=== PATIENT | male | born 1975 | race Caucasian/White ===

== ENCOUNTER 2024-09-05 13:02 | Emergency (ER) | payer SELFPAY ==
[2024-09-05 13:11] VITALS: BP 152/72
--- NOTE | 2024-09-05 13:39 | ED.GENMED ---
History of Present Illness
General
Chief Complaint: Suicidal Ideation
Source: patient
Exam Limitations: none
Time Seen by Provider: 09/05/24 13:37
Nursing documentation reviewed up to this point in time: agreed with
History of Present Illness
History of Present Illness:
Note:
CHIEF COMPLAINT(S)
Suicidal thoughts
HISTORY OF PRESENT ILLNESS
The patient is a 48-year-old male presenting with acute suicidal ideation, stating today as being worse than his usual baseline. He reported, 'Today seemed worse,' and admitted to having pills ready to ingest but did not take any. He described
feeling suicidal 'basically forever' and noted a history of bipolar disorder with psychosis, diagnosed during a psychiatric admission in 2005. He reports being depressed, despite not feeling it at the moment, saying, 'Right now, I dont feel it, but
yes, Im absolutely.' The patient is currently not taking any medications and does not have a relationship with a psychiatrist. He expressed a lack of safety in his own home despite having lived with his mother, stating, 'I dont feel safe for myself.'
SOCIAL DETERMINANTS AFFECTING HEALTH
The patient is currently unemployed with no source of income, stating, 'Do you have any income at all?' to which he responded negatively. He mentioned receiving some aid from his bapt[employer]. He indicated that he no longer feels safe in his living
situation.
SOCIAL HISTORY
The patient smokes cigarettes and marijuana; the product used is marijuana in the form of THC inhalers, referred to as 'those little inhalers,' likened to vaping. He does not consume alcohol.
REVIEW OF SYSTEMS
- Psychiatric: Suicidal ideation, history of bipolar disorder with psychosis, depression.
- Neurological: No acute change noted.
- Respiratory: No acute difficulty or concern raised.
PROBLEM LIST
- Acute: Suicidal ideation
- Chronic: Bipolar disorder with psychosis
PLAN
The patient will need immediate psychiatric evaluation, and a review of blood sample results is pending. A safety assessment and potential admission to a psychiatric facility are indicated due to the suicidal ideation.
DIFFERENTIAL DIAGNOSIS
The Differential Diagnosis includes, in no particular order and is not limited to:
1. Bipolar disorder with psychosis
2. Major depressive disorder
3. Schizoaffective disorder
4. Panic disorder
5. Substance-induced mood disorder
6. Post-traumatic stress disorder
7. Personality disorder
8. Adjustment disorder
9. Generalized anxiety disorder
10. Delusional disorder
CARE-UPDATE
09/05/24 - 14:57
The patient is to be admitted to a crisis facility for inpatient psychiatric treatment. Awaiting a crisis evaluation for final disposition. No evidence of acute medical illness currently observed.
Disposition:
DIAGNOSIS
- Suicidal ideation (ICD-10: R45.851)
- Bipolar disorder with psychosis (ICD-10: F31.2)
SUMMARY OF ENCOUNTER
The patient, a 48-year-old male, presented to the emergency department with acute suicidal ideation, reporting that the day was markedly worse compared to his usual baseline. He admitted having intentions to ingest pills but had not done so at the
time of the encounter. The patient has a longstanding history of suicidal thoughts, exacerbated by his diagnosis of bipolar disorder with psychosis since 2005. He expressed feeling unsafe at his current residence despite living with his mother. The
encounter included a safety assessment and plans for an imminent psychiatric evaluation to address the acute mental health crisis. The patient is currently off medications and lacks psychiatric follow-up.
DISPOSITION
psych facility
CONSIDERATION FOR ADMISSION
The patient was considered for admission to a crisis facility for inpatient psychiatric treatment due to acute suicidal ideation and perceived lack of safety at home.
ASSESSMENT
The patient exhibits acute suicidal ideation in the context of a chronic mental health disorder, specifically bipolar disorder with psychosis.
PLAN
The management plan includes an immediate psychiatric evaluation with potential admission to a psychiatric facility. The patients safety needs to be assessed, and appropriate interventions initiated to ensure his safety and stabilization.
SMOKING CESSATION COUNSELING
The patient smokes cannabis; I counseled him on cessation and informed him of the significant health risks associated with smoking, including potential for worsening mental health outcomes. Encouragement was given to consider discontinuation with
strategies such as setting a quit date.
MEDICAL DECISION MAKING
Number and Complexity of Problems Addressed:
The encounter involved management of acute suicidal ideation and ongoing symptoms of bipolar disorder with psychosis, reflecting a complex and potentially life-threatening scenario.
Risk:
High risk necessitated potential admission due to acute mental health crisis and lack of safe living environment. Social determinants, such as unemployment and absence of psychiatric care, further complicated this case, demanding consideration for
inpatient psychiatric intervention.
To the best of my knowledge and according to current medical standards, the patient was provided with care that meets or exceeds the standard of care for their condition.
Phy Exam
Physical Exam
Physical Exam:
Physical Exam
General: no apparent distress, not acutely ill
Neck: supple. no meningeal signs. normal posterior pharynx
Heart: s1/s2 regular rate and rhythm, no murmur. equal radial
pulses.
HEENT: Pupils equal round reactive to light, EOMI
Lungs: no acute respiratory distress. clear bilaterally
Abdomen: normal bowel sounds. not tender. no CVAT
Neuro: alert and oriented. no focal neurological deficits cranial nerves II through XII intact
Skin: no rash
Psychiatric: well kept. interactive and cooperative
Extremities: no edema. no calf tenderness. negative homans. good distal pulses
Course
Orders/Labs/Results
Orders:
Orders
09/05/24 13:30
1:1 Observation - Suicide/ Violent Behavior As Directed
Crisis Consult Urgent
Reason for Consult: Suicidal ideation. visual hallucinations
09/05/24 14:34
Acetaminophen Urgent
Alcohol Urgent
Complete Blood Count/With Diff Urgent
Comprehensive Metabolic Panel Urgent
Salicylate Urgent
Urine Drug Abuse Screen Urgent
Date Specimen was Collected: 09/05/24
Time Specimen was Collected: 13:57
Abnormal Lab Results
09/05/24
14:34
MCH 31.7 H pg
(27.0-31.0)
Absolute Monos (auto) 0.9 H 10^3/uL
(0.1-0.6)
Monocytes % 9.7 H %
(1.7-9.3)
U Marijuana (THC) Screen Positive H
(Negative)
09/05/24 14:34
Vital Signs
Initial and Last Documented VS:
Initial Vital Signs
Temp Pulse Resp BP Pulse Ox
98.2 F 71 16 152/72 98
09/05/24 13:11 09/05/24 13:11 09/05/24 13:11 09/05/24 13:11 09/05/24 13:11
Last Documented Vital Signs
Temp Pulse Resp BP Pulse Ox
98.2 F 71 16 152/72 98
09/05/24 13:11 09/05/24 13:11 09/05/24 13:11 09/05/24 13:11 09/05/24 13:39
*Pulse Oximetry
SaO2: 98
Oxygen Mode of Delivery: Room air
Patient hypoxic: no
*Critical Care Note
Total Time (30-74mins, 75-104mins- exclusive of procedures): Not Applicable
ED Attending Note
-
Portions of this chart may have been created with voice recognition software.� Occasional wrong word or��sound alike� substitutions may have occurred due to the inherent limitations of voice recognition software.
Discharge Plan
Departure
Patient Disposition: Psych Facility
Date of Disposition: 09/05/24
Time of Disposition: 14:58
Patient Status:: Psych
Patient with high blood pressure during this ER visit?: Yes
Condition: Good
Discharge Problem:
Suicidal ideation
Referrals:
Homar Cobos DO [Family Provider, Family Practice]
Interventions
Interventions:
*Risk Screen - Suicide Last Done: 09/05/24 13:25
*General Assessment Last Done: 09/05/24 13:25
*Neglect/Abuse Screening Last Done: 09/05/24 13:25
*ED- Fall Risk Assessment Last Done: 09/05/24 13:25
*ED COVID-19 Vaccine History Last Done: 09/05/24 13:25
ED-Psychological Assessment Last Done: 09/05/24 13:25
Discharge Date and Time
Print Language: CZECH
[2024-09-05 13:40] VITALS: BMI 22.9
[2024-09-05 14:42] LABS: % Basophils 0.4 % (0-2); % Eosinophils 0.3 % (0-6); % Immature Granulocytes 0.1 % (0-0.5); % Lymphocytes 26.8 % (20.5-51.1); % Monocytes 9.7 % (1.7-9.3); % Neutrophils 62.7 % (42.2-75.2); Absolute Lymphocytes 2.5 10^3/uL (1.2-3.4); Absolute Monocytes 0.9 10^3/uL (0.1-0.6); Absolute Neutrophils 5.9 10^3/uL (1.4-6.5); Hematocrit 46.7 % (39.0-52.0); Hemoglobin 16.6 g/dL (13.0-18.0); Mean Corp Hgb Conc. 35.5 g/dL (33.0-37.0); Mean Corpuscular Hgb 31.7 pg (27.0-31.0); Mean Corpuscular Volume 89.3 fL (80.0-94.0); Mean Platelet Volume 9.5 fL (7.4-10.4); Nucleated Red Blood Cells % 0 % (-); Platelet Count 203 10^3/uL (130-400); Red Blood Cell Count 5.23 10^6/uL (4.70-6.10); Red Cell Dist. Width 13.1 % (11.5-14.5); White Blood Cell Count 9.4 10^3/uL (4.8-10.8)
--- NOTE | 2024-09-05 14:43 | EDRN ---
Urine spec and drawn bloods for ordered labwork sent to lab at this time.
[2024-09-05 14:54] LABS: Amphetamines Negative (Negative); Barbiturates Negative (Negative); Benzodiazepines Negative (Negative); Buprenorphine Negative (Negative); Cocaine Negative (Negative); Marijuana Positive (Negative); Methadone Negative (Negative); Methamphetamines Negative (Negative); Opiates Negative (Negative); Phencyclidine Negative (Negative); Tricyclic Antidepressants Negative (Negative)
[2024-09-05 15:04] LABS: ALT (SGPT) 23 U/L (0-50); AST (SGOT) 25 U/L (17-59); Acetaminophen < 10 ug/ml (10-30); Albumin 4.8 g/dl (3.5-5.0); Alkaline Phosphatase 72 U/L (38-126); Blood Urea Nitrogen 7 mg/dl (9-20); Calcium 9.6 mg/dl (8.4-10.2); Carbon Dioxide 28 mmol/L (22-30); Chloride 106 mmol/L (98-107); Estimated Creatinine Clearance 108 ml/min; Glucose 134 mg/dl (70-99); Potassium 4.3 mmol/L (3.5-5.1); Salicylate < 1.0 mg/dl (2.0-20.0); Sodium 140 mmol/L (135-145); Total Bilirubin 0.6 mg/dl (0.2-1.3); Total Protein 7.6 g/dl (6.3-8.2); eGFR > 60.00
[2024-09-05 15:10] LABS: Alcohol None Detected
== END 2024-09-05 21:07 ==
LOC: EMR 13:02
PROVIDERS: EMERGENCY PHYSICIAN Emergency Medicine; FAMILY PHYSICIAN Family Medicine
DX: F31.9 Bipolar disorder, unspecified (principal); R45.851 Suicidal ideations; F17.210 Nicotine dependence, cigarettes, uncomplicated; F12.90 Cannabis use, unspecified, uncomplicated
CPT/HCPCS: 99285; 80053; 80143; 80179; 80306; 82077; 85025